=== PATIENT | female | born 1945 | race Caucasian/White ===

== ENCOUNTER 2018-08-12 12:57 | Outpatient (REF) | payer MEDICARE, BC, SELFPAY ==
[2018-08-12 22:31] LABS: COMMENT (LAB VIEW ONLY) 206.52 mg/dL; Microalb ug/mg Crea 10.8 ug/mg Cr
== END 2018-08-12 13:17 ==
LOC: NCHCN 12:57
PROVIDERS: PCP Family Medicine; Visit Provider Family Medicine
DX: E11.9 Type 2 diabetes mellitus without complications (principal)
CPT/HCPCS: 82043; 82570

== ENCOUNTER 2019-05-17 09:32 | Outpatient (REF) | payer MEDICARE, BC, SELFPAY ==
[2019-05-17 22:09] LABS: HCT 40.1 % (36.0-46.0); HGB 13.1 g/dL (12.0-15.5); Mean Corp. HGB Concentration 32.7 g/dL (32.0-36.0); Mean Corpuscular Hemoglobin 27.5 pg (27.0-33.0); Mean Corpuscular Volume 84.2 fL (80-95); Mean Platelet Volume 11.9 fL (8.0-11.0); Platelet Count 171 x1000/uL (130-400); RBC 4.76 m/cumm (4.00-5.20); RBC Distribution Width 13.8 % (11.7-14.6); White Blood Cell Count 3.99 k/cumm (4.4-10.8)
[2019-05-17 22:42] LABS: ALT 32 U/L (12-78); AST 29 U/L (15-37); Albumin 3.8 g/dL (3.4-5.0); Alkaline Phosphatase 120 U/L (46-116); Anion Gap 10.5 mmol/L (3-11); BUN 16 mg/dL (7-18); Bilirubin, Total 0.5 mg/dL (0.2-1.0); CO2 27.5 mmol/L (21.0-32.0); CREATININE 0.78 mg/dL (0.55-1.02); Calcium 9.4 mg/dL (8.5-10.1); Calculated LDL 108 mg/dL; Chloride 103 mmol/L (98-107); Cholesterol 180 mg/dL (50-200); Ferritin 10 ng/mL (8-388); Glucose 133 mg/dL (70-100); HDL Cholesterol 41 mg/dL (40-60); Potassium 4.6 mmol/L (3.5-5.1); Sodium 141 mmol/L (136-145); Total Protein 6.4 g/dL (6.4-8.2); Triglyceride 157 mg/dL (30-150)
[2019-05-19 13:45] LABS: TSH (W/Ref FT4) 2.99 uIU/mL (0.36-3.74)
== END 2019-05-17 09:52 ==
LOC: NCHCN 09:32
PROVIDERS: PCP Family Medicine; Visit Provider Family Medicine
DX: D50.9 Iron deficiency anemia, unspecified (principal); E11.9 Type 2 diabetes mellitus without complications; E78.5 Hyperlipidemia, unspecified; E66.9 Obesity, unspecified; I10 Essential (primary) hypertension; R53.83 Other fatigue
CPT/HCPCS: 80053; 80061; 83721; 85027; 82728; 84443

== ENCOUNTER 2019-08-17 18:40 | Outpatient (REF) | payer MEDICARE, BC, SELFPAY ==
[2019-08-17 21:48] LABS: COMMENT (LAB VIEW ONLY) 50.85 mg/dL; Microalb ug/mg Crea 14.2 ug/mg Cr
== END 2019-08-17 19:00 ==
LOC: NCHCN 18:40
PROVIDERS: PCP Family Medicine; Visit Provider Family Medicine
DX: E11.9 Type 2 diabetes mellitus without complications (principal)
CPT/HCPCS: 82043; 82570

== ENCOUNTER 2020-05-15 13:34 | Outpatient (REF) | payer MEDICARE, BC, SELFPAY ==
[2020-05-15 21:22] LABS: HCT 38.2 % (36.0-46.0); HGB 12.2 g/dL (11.2-15.7); MCH 27.8 pg (27.0-33.0); MCHC 31.9 % (32.0-36.0); MPV 11.9 fL (8.0-11.0); Platelet Count 154 10^3/uL (130-400); RBC 4.39 10^6/uL (3.93-5.22); RDW 12.9 % (11.7-14.6); RDW-SD 40.3 fL; WBC 3.78 10^3/uL (4.4-10.8)
[2020-05-15 21:32] LABS: Hemoglobin A1C 6.6 % (3.8-5.6)
[2020-05-15 21:43] LABS: ALT 28 U/L (14-59); AST 22 U/L (15-37); Albumin 3.8 g/dL (3.4-5.0); Alkaline Phosphatase 123 U/L (46-116); Anion Gap 8.5 mmol/L (3-11); BUN 16 mg/dL (7-18); Bilirubin, Total 0.4 mg/dL (0.2-1.0); CO2 28.5 mmol/L (21.0-32.0); CREATININE 0.75 mg/dL (0.55-1.02); Calcium 9.4 mg/dL (8.5-10.1); Calculated LDL 111 mg/dL (<100); Chloride 105 mmol/L (98-107); Cholesterol 176 mg/dL (<200); Glucose 137 mg/dL (74-106); HDL Cholesterol 40 mg/dL (40-60); Potassium 4.1 mmol/L (3.5-5.1); Sodium 142 mmol/L (136-145); Total Protein 6.5 g/dL (6.4-8.2); Triglyceride 128 mg/dL (<150)
== END 2020-05-15 13:54 ==
LOC: NCHCN 13:34
PROVIDERS: PCP Family Medicine; Visit Provider Family Medicine
DX: Z00.00 Encounter for general adult medical examination without abnormal findings (principal); E11.9 Type 2 diabetes mellitus without complications; E78.5 Hyperlipidemia, unspecified; I10 Essential (primary) hypertension; D50.9 Iron deficiency anemia, unspecified
CPT/HCPCS: 80053; 80061; 85027; 83036

== ENCOUNTER 2020-05-22 16:56 | Outpatient (REF) | payer MEDICARE, BC, SELFPAY ==
[2020-05-22 21:53] LABS: COMMENT (LAB VIEW ONLY) 206.38 mg/dL; Microalb ug/mg Crea 6.3 ug/mg Cr
== END 2020-05-22 17:16 ==
LOC: NCHCN 16:56
PROVIDERS: PCP Family Medicine; Visit Provider Family Medicine
DX: E11.9 Type 2 diabetes mellitus without complications (principal)
CPT/HCPCS: 82043; 82570

== ENCOUNTER 2021-03-26 16:14 | Outpatient (REF) | payer MEDICARE, BC, SELFPAY ==
[2021-03-26 21:56] LABS: Hemoglobin A1C 6.8 % (<5.7)
[2021-03-26 22:01] LABS: ALT 38 U/L (14-59); AST 30 U/L (15-37); Albumin 3.7 g/dL (3.4-5.0); Alkaline Phosphatase 130 U/L (46-116); Anion Gap 8.5 mmol/L (3-11); BUN 17 mg/dL (7-18); Bilirubin, Total 0.3 mg/dL (0.2-1.0); CO2 28.5 mmol/L (21.0-32.0); CREATININE 0.8 mg/dL (0.55-1.02); Calcium 9.1 mg/dL (8.5-10.1); Calculated LDL 95 mg/dL (<100); Chloride 105 mmol/L (98-107); Cholesterol 174 mg/dL (<200); Glucose 90 mg/dL (74-106); HDL Cholesterol 39 mg/dL (40-60); Potassium 4.2 mmol/L (3.5-5.1); Sodium 142 mmol/L (136-145); Total Protein 6.1 g/dL (6.4-8.2); Triglyceride 202 mg/dL (<150)
== END 2021-03-26 16:15 | disposition home or self-care (01) ==
LOC: NCHCN 16:14
PROVIDERS: PCP Family Medicine; Visit Provider Family Medicine
DX: E11.9 Type 2 diabetes mellitus without complications (principal); E78.5 Hyperlipidemia, unspecified; E66.9 Obesity, unspecified
CPT/HCPCS: 80053; 80061; 83036

== ENCOUNTER 2021-07-23 11:58 | Outpatient (REF) | payer MEDICARE, BC, SELFPAY ==
[2021-07-23 22:27] LABS: Abs Immature Grans 0.02 10^3/uL (0.0-0.06); Absolute Basophil Count 0.01 10^3/uL (0.0-0.2); Absolute Eosinophil Count 0.09 10^3/uL (0.0-0.7); Absolute Lymphocyte Count 1.17 10^3/uL (1.2-3.4); Absolute Monocyte Count 0.45 10^3/uL (0.1-0.8); Basophils % 0.2; HCT 42.2 % (36.0-46.0); HGB 13.1 g/dL (11.2-15.7); Immature Grans % 0.5; Lymphocytes % 26.4; MCV 80.7 fL (80-95); MPV 12.6 fL (8.0-11.0); Monocytes % 10.1; Neutrophils % 60.8; Nucleated RBC 0 %; Platelet Count 170 10^3/uL (130-400); RBC 5.23 10^6/uL (3.93-5.22); RDW 14.9 % (11.7-14.6); RDW-SD 43.1 fL; WBC 4.44 10^3/uL (4.4-10.8)
[2021-07-23 22:46] LABS: ALT 41 U/L (14-59); AST 36 U/L (15-37); Albumin 3.9 g/dL (3.4-5.0); Alkaline Phosphatase 124 U/L (46-116); Anion Gap 5.7 mmol/L (3-11); BUN 13 mg/dL (7-18); Bilirubin, Total 0.4 mg/dL (0.2-1.0); CO2 31.3 mmol/L (21.0-32.0); CREATININE 0.9 mg/dL (0.55-1.02); Calcium 9.7 mg/dL (8.5-10.1); Chloride 104 mmol/L (98-107); Glucose 103 mg/dL (74-106); Potassium 4.3 mmol/L (3.5-5.1); Sodium 141 mmol/L (136-145); Total Protein 6.7 g/dL (6.4-8.2)
[2021-07-23 23:07] LABS: Hemoglobin A1C 6.5 % (<5.7)
== END 2021-07-23 11:59 | disposition home or self-care (01) ==
LOC: NCHCN 11:58
PROVIDERS: PCP Family Medicine; Visit Provider Family Medicine
DX: E11.9 Type 2 diabetes mellitus without complications (principal); Z00.00 Encounter for general adult medical examination without abnormal findings; E78.5 Hyperlipidemia, unspecified
CPT/HCPCS: 80053; 83036; 85025

== ENCOUNTER 2021-07-26 11:52 | Outpatient (REF) | payer MEDICARE, BC, SELFPAY | END 2021-07-26 11:53 | disposition home or self-care (01) | LOC: NCHCN 11:52 | PROVIDERS: PCP Family Medicine; Visit Provider Family Medicine | DX: E11.9 Type 2 diabetes mellitus without complications (principal) | CPT/HCPCS: 82043; 82570 ==

== ENCOUNTER 2022-02-18 18:27 | Outpatient (REF) | payer MEDICARE, BC, SELFPAY ==
[2022-02-18 14:41] LABS: Hemoglobin A1C 7.2 % (<5.7)
[2022-02-18 14:46] LABS: ALT 33 U/L (14-59); AST 29 U/L (15-37); Albumin 3.8 g/dL (3.4-5.0); Alkaline Phosphatase 133 U/L (46-116); Anion Gap 6.6 mmol/L (3-11); BUN 14 mg/dL (7-18); Bilirubin, Total 0.4 mg/dL (0.2-1.0); CO2 29.4 mmol/L (21.0-32.0); CREATININE 0.8 mg/dL (0.55-1.02); Calcium 9.2 mg/dL (8.5-10.1); Calculated LDL 96 mg/dL (<100); Chloride 105 mmol/L (98-107); Cholesterol 170 mg/dL (<200); Glucose 128 mg/dL (74-106); HDL Cholesterol 41 mg/dL (40-60); Potassium 4.5 mmol/L (3.5-5.1); Sodium 141 mmol/L (136-145); Total Protein 6.5 g/dL (6.4-8.2); Triglyceride 166 mg/dL (<150)
== END 2022-02-18 18:28 | disposition home or self-care (01) ==
LOC: NCHCN 18:27
PROVIDERS: PCP Family Medicine; Visit Provider Family Medicine
DX: E11.9 Type 2 diabetes mellitus without complications (principal); I10 Essential (primary) hypertension
CPT/HCPCS: 80053; 80061; 83036

== ENCOUNTER 2022-06-27 16:26 | Outpatient (REF) | payer MEDICARE, BC, SELFPAY ==
[2022-06-28 22:36] LABS: Albumin ug/mg Crea 7 (<30); Albumin, Ur 1.3 mg/dL (See Note); Creatinine, Ur 179.6 mg/dL (See Note)
== END 2022-06-27 16:27 | disposition home or self-care (01) ==
LOC: NCHCN 16:26
PROVIDERS: PCP Family Medicine; Visit Provider Family Medicine
DX: E11.9 Type 2 diabetes mellitus without complications (principal)
CPT/HCPCS: 82043; 82570

== ENCOUNTER 2023-05-22 10:12 | Outpatient (REF) | payer MEDICARE, BC, SELFPAY ==
[2023-05-22 15:42] LABS: ALT 27 U/L (14-59); AST 30 U/L (15-37); Albumin 3.7 g/dL (3.4-5.0); Alkaline Phosphatase 118 U/L (46-116); Anion Gap 5.7 mmol/L (3-11); BUN 19 mg/dL (7-18); Bilirubin, Total 0.4 mg/dL (0.2-1.0); CO2 30.3 mmol/L (21.0-32.0); CREATININE 0.9 mg/dL (0.55-1.02); Calcium 9.5 mg/dL (8.5-10.1); Calculated LDL 109 mg/dL (<100); Chloride 105 mmol/L (98-107); Cholesterol 175 mg/dL (<200); Estimated GFR 65.84 (mL/min/1.73m2); Glucose 123 mg/dL (74-106); HDL Cholesterol 44 mg/dL (40-60); Hemoglobin A1C 6.7 % (<5.7); Potassium 4.5 mmol/L (3.5-5.1); Sodium 141 mmol/L (136-145); Total Protein 6.7 g/dL (6.4-8.2); Triglyceride 112 mg/dL (<150)
== END 2023-05-22 10:13 | disposition home or self-care (01) ==
LOC: NCHCN 10:12
PROVIDERS: PCP Family Medicine; Visit Provider Family Medicine
DX: E11.9 Type 2 diabetes mellitus without complications (principal); E78.5 Hyperlipidemia, unspecified
CPT/HCPCS: 80053; 80061; 83036

== ENCOUNTER 2023-05-29 21:12 | Outpatient (REF) | payer MEDICARE, BC, SELFPAY ==
[2023-05-29 21:55] LABS: COMMENT (LAB VIEW ONLY) 72.46 mg/dL; Microalb ug/mg Crea 10.5 ug/mg Cr
== END 2023-05-29 21:13 | disposition home or self-care (01) ==
LOC: NCHCN 21:12
PROVIDERS: PCP Family Medicine; Visit Provider Family Medicine
DX: E11.9 Type 2 diabetes mellitus without complications (principal)
CPT/HCPCS: 82043; 82570

== ENCOUNTER 2024-05-26 22:50 | Outpatient (REF) | payer MEDICARE, BC, SELFPAY ==
[2024-05-25 22:10] LABS: ALT 25 U/L (14-59); AST 27 U/L (15-37); Albumin 3.7 g/dL (3.4-5.0); Alkaline Phosphatase 103 U/L (46-116); BUN 15 mg/dL (7-18); Bilirubin, Total 0.44 mg/dL (0.2-1.0); CO2 28.8 mmol/L (21.0-32.0); CREATININE 0.8 mg/dL (0.55-1.02); Calcium 9.8 mg/dL (8.5-10.1); Estimated GFR 75.37 (mL/min/1.73m2); Glucose 130 mg/dL (74-106); Total Protein 6.7 g/dL (6.4-8.2)
[2024-05-25 22:32] LABS: Anion Gap 7.2 mmol/L (3-11); Chloride 103 mmol/L (98-107); Potassium 4.1 mmol/L (3.5-5.1); Sodium 139 mmol/L (136-145)
[2024-05-26 11:53] LABS: Hemoglobin A1C 6.4 % (<5.7)
== END 2024-05-26 22:51 | disposition home or self-care (01) ==
LOC: NCHCN 22:50
PROVIDERS: PCP Family Medicine; Visit Provider Family Medicine
DX: I10 Essential (primary) hypertension (principal); E11.9 Type 2 diabetes mellitus without complications
CPT/HCPCS: 80053; 83036

== ENCOUNTER 2024-05-31 21:54 | Outpatient (REF) | payer MEDICARE, BC, SELFPAY ==
[2024-05-31 16:20] LABS: HCT 38.2 % (36.0-46.0); HGB 11.7 g/dL (11.2-15.7); MCH 24.1 pg (27.0-33.0); MCHC 30.6 % (32.0-36.0); MCV 79 fL (80-95); Platelet Count 172 10^3/uL (130-400); RBC 4.86 10^6/uL (3.93-5.22); RDW 15.6 % (11.7-14.6); RDW-SD 43.8 fL; WBC 4.84 10^3/uL (4.4-10.8)
[2024-05-31 17:14] LABS: Ferritin 11 ng/mL (8-252); TSH 3.64 uIU/Ml (0.36-3.74)
[2024-05-31 17:57] LABS: FREE T4 1.02 ng/dL (0.76-1.46)
[2024-06-02 20:36] LABS: COMMENT (LAB VIEW ONLY) 167.74 mg/dL; Microalb ug/mg Crea 10.7 ug/mg Cr
== END 2024-05-31 21:55 | disposition home or self-care (01) ==
LOC: NCHCN 21:54
PROVIDERS: PCP Family Medicine; Visit Provider Family Medicine
DX: E04.9 Nontoxic goiter, unspecified (principal); E11.9 Type 2 diabetes mellitus without complications; Z86.2 Personal history of diseases of the blood and blood-forming organs and certain disorders involving the immune mechanism
CPT/HCPCS: 85027; 82043; 82570; 82728; 84439; 84443

== ENCOUNTER 2025-02-02 21:00 | Outpatient (REF) | payer MEDICARE, BC, SELFPAY ==
[2025-02-02 21:48] LABS: Anion Gap 8.3 mmol/L (3-11); BUN 14 mg/dL (7-18); CO2 30.7 mmol/L (21.0-32.0); CREATININE 0.7 mg/dL (0.55-1.02); Calcium 7.7 mg/dL (8.5-10.1); Chloride 104 mmol/L (98-107); Estimated GFR 87.92 (mL/min/1.73m2); Glucose 101 mg/dL (74-106); Potassium 3.3 mmol/L (3.5-5.1); Sodium 143 mmol/L (136-145)
== END 2025-02-02 21:01 | disposition home or self-care (01) ==
LOC: NCHCN 21:00
PROVIDERS: PCP Family Medicine; Visit Provider Family Medicine
DX: I10 Essential (primary) hypertension (principal)
CPT/HCPCS: 80048